=== PATIENT | female | born 1960 | race Caucasian/White ===

== ENCOUNTER → 2017-12-19 | Outpatient (CLI) | payer BC ==
[~2017-12-19] VITALS: Ht 162.6 cm; Wt 81.7 kg
[~2017-12-19] MED LIST: ASPIR 8181 M1 PO; COZAAR50 MG PO; ESSENTIAL DAIL1 EACH PO; FIBER500 MG PO; GOLYTELY SOLU4000 ML PO; HYDROCHLOROTHIA25 MG PO; LIPITOR20 MG PO; LOPRESSOR100 M1 PO; NAPROSYN250 MG PO; PROZAC20 MG PO; VITAMIN D2000 UNIT PO; VITAMIN E200 UNI2 PO; ZYRTEC10 M2 PO
== END | disposition home or self-care (01) ==
LOC: AMB 06:47
DX: Z12.11 Encounter for screening for malignant neoplasm of colon (principal); K57.30 Diverticulosis of large intestine without perforation or abscess without bleeding; D12.3 Benign neoplasm of transverse colon; D12.5 Benign neoplasm of sigmoid colon; K62.1 Rectal polyp; K64.8 Other hemorrhoids; Z86.39 Personal history of other endocrine, nutritional and metabolic disease; Z86.79 Personal history of other diseases of the circulatory system
CPT/HCPCS: 88305; 93005; J2250